=== PATIENT | male | born 1980 ===

== ENCOUNTER 2021-04-12 13:13 | Emergency (ER) | payer BC ==
--- NOTE | 2021-04-12 18:04 | Emergency Department Report ---
<NEYMAR NOBLE - Last Filed: 04/13/21 00:25> ED General Adult HPI - General Chief complaint: Sore Throat Stated complaint: FEVER/BODY PAIN Time Seen by Provider: 04/12/21 17:50 Source: patient Mode of arrival: Ambulatory Limitations: No Limitations - History of Present Illness Initial comments: 40-year-old male patient presents to the emergency department with complaints of subjective fever, sore throat, difficulty swallowing, hoarseness, and body aches starting yesterday. No known sick contacts. No current steroid or antibiotic use. No recent travel. Pain in his throat is worse with swallowing. No history of similar symptoms. Denies cough, wheezing, sneezing, ear pain, vomiting, diarrhea. Denies all other complaints at this time. - Related Data Allergies Allergy/AdvReac Type Severity Reaction Status Date / Time No Known Allergies Allergy Verified 04/13/21 00:47 ED Review of Systems Other: GENERAL: Positive for subjective fever. ENT: Positive for sore throat, hoarseness, and dysphagia. CARDIOVASCULAR: Negative for chest pain, palpitations, lower extremity swelling. PULMONARY: Negative for cough, dyspnea, wheezing, orthopnea, cyanosis. GASTROINTESTINAL: Negative for abdominal pain, nausea, vomiting, diarrhea, constipation. MUSCULOSKELETAL: Positive for myalgias. NEUROLOGICAL: Negative for headache, seizure, syncope, paresthesias, weakness. INTEGUMENTARY: Negative for erythema, rash, diaphoresis, laceration, ecchymosis. HEMATOLOGICAL: Negative for hemoptysis, hematemesis, hematochezia, hematuria. PSYCHIATRIC: Negative for hallucinations, suicidal ideation, homicidal ideation, anxiety, depression. ED Past Medical Hx - Past Medical History Hx Hypertension: Yes - Surgical History Past Surgical History?: No ED Physical Exam - General Limitations: No Limitations - Other Other exam information: General: Awake and alert. No acute distress. Head: Atraumatic, normocephalic. Eyes: EOMI. Pupils are equal and round. Normal sclera and conjunctiva. ENT: Oral mucosa is moist. Pharyngeal erythema with bilateral tonsillar swelling, no exudate. Uvula is midline and nonedematous. Hoarseness noted. No trismus. Submental and submandibular spaces are soft, no crepitus, no overlying erythema. Neck: Supple. Diffuse tender bilateral cervical lymphadenopathy. Pulmonary: No respiratory distress. Clear to auscultation bilaterally. Cardiac: Regular rate and rhythm. Pulses are palpable and equal bilaterally. No lower extremity cyanosis or edema. Skin: Warm and dry. No rashes. Abdomen: Soft, non-tender, non-protuberant. No guarding, rigidity, or rebound. Bowel sounds are normal. No organomegaly or masses noted. Back: Normal alignment. No CVA tenderness. Extremities: Symmetrical. Full range of motion intact. Neurological: Alert and oriented, appropriately interactive, no focal deficits. Psych: Cooperative. Appropriate mood and affect. Speech is evenly metered. Thoughts are logically construed. 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 TECHNIQUE: Contiguous thin cut axial images obtained through the neck following IV contrast. Sagittal and coronal reconstructions performed by the technologist. All CT scans at this location are performed using CT dose reduction for ALARA by means of automated exposure control. COMPARISON: None available. FINDINGS: There is a well-circumscribed, rim-enhancing fluid collection in the submucosal soft tissues of the hypopharynx on the right, measuring approximately 3.1 cm transversely by 3.3 cm craniocaudally by 2.1 cm AP. Small portion of fluid collection extends inferiorly through the thyrohyoid ligament into the supraglottic larynx region on the right. The superior margin of the lesion lies inferior to the hyoid bone. There is focal mass effect with leftward displacement of the airway. Infected branchial cleft cyst might be a consideration. Infected laryngocele might be considered as well. Necrotic or infected node could be considered, although I feel this is less likely MUCOSAL SPACE: [place] and lingual tonsillar tissue is mildly prominent, as is the patient's adenoidal tissue, which may be reactive. External laryngocele noted on the left. Otherwise, the nasopharynx, oropharynx and vallecula, oral cavity and floor of mouth, hypopharynx, and larynx are grossly normal. LYMPH NODES: Reactive level 2 lymph nodes noted. No evidence of suppurative node seen. SALIVARY GLANDS: Parotid, submandibular, and visualized sublingual glands are within normal limits. THYROID GLAND: Unremarkable. PARANASAL SINUSES: Mild to moderate mucosal thickening in the ethmoids. Mild mucosal thickening also seen in the mastoids. SPINE: Disc space narrowing is seen at C5-6 with anterior spondylosis seen. There is mild loss of height at C5 and C6, most likely on a chronic degenerative basis. VASCULAR STRUCTURES: Vascular structures are grossly normal in appearance. ADDITIONAL FINDINGS: Surrounding soft tissues are otherwise grossly normal. IMPRESSION: 1. Well-circumscribed, rim-enhancing fluid collection in the right neck as described above in detail, worrisome for infection. Signer Name: Martin Guzman MD, III Signed: 04/12/2021 9:37 PM Workstation Name: [email or web address] [id number] Transcribed By: HR Dictated By: Martin Guzman MD Electronically Authenticated By: Martin Guzman MD Signed Date/Time: 04/12/212136 DD/ 26 TD/TT: - Medical Decision Making Differential diagnosis including but not limited to: strep pharyngitis, viral pharyngitis, peritonsillar abscess, epiglottitis, Kwadwo's angina, mononucleosis, otitis media, allergic rhinitis Patient presents to the emergency department with complaints of rapidly progressing sore throat and voice changes starting less than 24 hours earlier. He is afebrile, vital signs are stable, no hypoxia, no respiratory distress. Cardiac monitoring, continuous pulse oximetry, and peripheral IV placement ordered immediately upon evaluating the patient. Labs are unremarkable. Rapid strep test is negative. CT of the neck shows a well-circumscribed, rim- enhancing fluid collection along the right hypopharynx extending from the supraglottic larynx to the thyrohyoid ligament, with focal mass-effect and leftward displacement of the airway. IV Clindamycin and Decadron ordered. ENT services not available at this facility. Case discussed with Dr. Patricia, attending emergency physician, who personally evaluated the patient and agrees with diagnostic work-up/plan of care. Care of patient transferred to Dr. Patricia pending transfer to outside facility with ENT services available. Please see ED physician documentation for details regarding final disposition. Critical Care Time: Yes Critical care time in (mins) excluding proc time.: 74 Critical Care Time: 74 ED Disposition Clinical Impression: Abscess of neck, Sore throat, Throat pain, Hoarseness, Pharyngeal abscess Disposition: 07 LEFT AGAINST MEDICAL ADVICE Is pt being admited?: No Does the pt Need Aspirin: No Condition: Critical Additional Instructions: Patient to go directly to [place] or [place] or another facility with ENT support. Referrals: CONNOR LUIS MD [Primary Care Provider] - 2-3 Days Forms: Work/School Release Form(ED) <MARC PATRICIA III - Last Filed: 04/13/21 06:19> ED General Adult HPI - General PUI?: Yes ED Review of Systems ROS: Stated complaint: FEVER/BODY PAIN Other details as noted in HPI ED Course Vital Signs 04/12/21 04/12/21 04/13/21 13:46 22:26 00:01 Temperature 99.1 F Pulse Rate 88 81 74 Respiratory 20 12 15 Rate Blood Pressure 137/99 138/83 O2 Sat by Pulse 98 100 98 Oximetry 04/13/21 04/13/21 04/13/21 00:15 00:31 00:45 Temperature Pulse Rate 77 72 73 Respiratory 12 12 12 Rate Blood Pressure 138/83 140/80 140/80 O2 Sat by Pulse 98 98 97 Oximetry 04/13/21 04/13/21 04/13/21 01:01 01:15 01:31 Temperature Pulse Rate 73 80 75 Respiratory 12 11 L 12 Rate Blood Pressure 141/81 141/81 139/93 O2 Sat by Pulse 96 95 97 Oximetry 04/13/21 04/13/21 04/13/21 01:45 02:01 02:04 Temperature 98.6 F Pulse Rate 85 78 Respiratory 19 15 Rate Blood Pressure 139/93 139/93 O2 Sat by Pulse 96 96 99 Oximetry 04/13/21 04/13/21 04/13/21 02:15 02:31 02:45 Temperature Pulse Rate 63 66 64 Respiratory 11 L 11 L 10 L Rate Blood Pressure 139/93 126/50 126/50 O2 Sat by Pulse 96 96 97 Oximetry 04/13/21 03:01 Temperature Pulse Rate 61 Respiratory 11 L Rate Blood Pressure 133/45 O2 Sat by Pulse 97 Oximetry - Reevaluation(s) Reevaluation #1: I reviewed the findings and management of this patient in real-time and I have personally seen and examined this patient and participated in the decision making for this patient with the midlevel. Patient is a 40-year-old male who presents emergency room for insidious onset of sore throat and hoarseness and voice changes. Patient states he is having severe pain. Patient states the symptoms started 24 hours ago and are severe and worsening. Patient is visiting here from the midlevel however I assumed care at this time. Patient was transferred from the past outside to the acute care center. Patient had a CT scan of the neck with IV contrast and the CT shows a large collection of fluid in the right neck extending to the lower pharynx and laryngeal and supero supraglottal and hyoid bone. The abscess and fluid collection is causing a leftward shift of the airway. Patient requiring ENT consult. I discussed possibility transfer with patient patient agrees with plan of care. I will reach out to some local facilities in order to try to transfer the patient to a facility that has ENT support. Patient will be given Clinda, Solu-Medrol, Zofran and morphine. Patient had labs done. Labs are essentially unremarkable. Patient strep was negative. I examined the patient. Patient's lung sounds are clear to auscultation. Patient CV exam shows a normal S1-S2 and no murmurs. Patient's abdominal exam is negative. Patient has left neck tenderness and cervical lymphadenopathy noted. No stridor noted. 04/12/21 22:15 Reevaluation #2: Patient states he is feeling better. Patient states the pain is better. I informed patient that we're still looking for a facility that has ENT support for him to be transferred to. 04/13/21 00:26 Reevaluation #3: I discussed all results with patient. I discussed transfer with the patient. I informed the patient that the patient will need to be transferred to another hospital that is outside the [facility] since all the hospitals in the within the [facility] are at capacity. Patient states he does not want to be transferred that far away. Patient states he wants to leave the hospital and go to [facility] [place] or [place] by private vehicle. I discussed this with patient. I discussed the risk with patient. Patient voiced understanding of the risk of leaving the hospital best medical advice. Patient signed AMA form. Patient given a copy of the CT. Even though the patient is leaving the hospital as a medical vice, a formal discharge will be given to the patient. 04/13/21 03:26 - Consultations Consultation #1: I discussed the case with the hospitalist service and they recommend transfer. 04/12/21 10:22 I discussed the case with the hospitalist and the hospitalist states that we can admit this patient to the hospitalist do not have ENT support. 04/13/21 02:12 Consultation #2: I discussed with multiple transfer centers in the [facility] as well as in [facility] and [facility] and all hospitals with available ENT are on diversion and have no available beds. 04/12/21 10:30 - 04/13/21 01:[address] Bland, ENT at [facility] and Dr. Bland recommends admission here to the medicine team and attempt to transfer tomorrow because [facility] has no available beds as well. 04/13/21 01:52 Consultation #3: I discussed the case with the transfer center at [facility] in [facility]. [facility] has available beds and will page the ENT on-call. 04/13/21 03:25 ED Medical Decision Making - Lab Data Result diagrams: 04/12/21 18:13 04/12/21 18:13 - Medical Decision Making Patient is a 40-year-old male that presents emergency room for sore throat and hoarseness. Patient had insidious onset of symptoms. Patient symptoms are worsening past 24 hours. Patient was originally evaluated by midlevel and I assumed care later in the course. Patient had a CT scan which shows pharyngeal abscesses and lymphadenopathy within the right neck. Patient's right neck abscess is causing leftward shift of the airway. Patient's labs are unremarkable. Patient vital signs stable. Patient will require transfer to a facility with ENT support. This facility does not have. I discussed with multiple facilities may transfer option however multiple facilities are on diversion. I then discussed with [facility] in [place] and [facility] has beds and ENT support. However when I discussed this with the patient the patient states he does not want to be transferred so far away states that he will go by private vehicle to another facility. I discussed the risk of this with the patient and the patient voiced understanding of the risk. Patient is of sound mind and body. Patient signed AMA form. Patient given copy of the CT results. Patient left hospital past medical advice. Critical care time documented due to the multiple reassessments, prolonged time at the bedside, interpretation of diagnostics and labs multiple discussion with receiving hospitals.. Critical Care Time: Yes Critical care time in (mins) excluding proc time.: 74 Critical care attestation.: If time is entered above; I have spent that time in minutes in the direct care of this critically ill patient, excluding procedure time. ED Disposition Is pt being admited?: No Does the pt Need Aspirin: No Time of Disposition: 03:28
[2021-04-12 18:24] LABS: Basophils # (Auto) 0.1 K/mm3 (0.0-0.1); Basophils % (Auto) 0.6 % (0.0-1.8); Eosinophils % (Auto) 0.4 % (0.0-4.3); Hematocrit 45.7 % (35.5-45.6); Lymphocytes % (Auto) 21.9 % (13.4-35.0); Mean Corpuscular HGB Conc 35 % (32-34); Mean Corpuscular Volume 98 fl (84-94); Monocytes # (Auto) 1.1 K/mm3 (0.0-0.8); Monocytes % (Auto) 12.2 % (0.0-7.3); Platelet Count 255 K/mm3 (140-440); Red Blood Count 4.67 M/mm3 (3.65-5.03); Red Cell Distribution Width 13.1 % (13.2-15.2)
[2021-04-12 18:49] LABS: Alanine Aminotransferase 19 units/L (7-56); Albumin 4.2 g/dL (3.9-5); BUN/Creatinine Ratio 12; Blood Urea Nitrogen 12 mg/dL (9-20); Calcium 9.1 mg/dL (8.4-10.2); Hemolysis Index 4
--- NOTE | 2021-04-12 21:41 | Cat Scan Report ---
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 TECHNIQUE: Contiguous thin cut axial images obtained through the neck following IV contrast. Sagittal and burnham l reconstructions performed by the technologist. All CT scans at this location are performed using CT dose reduction for ALARA by means of automated exposure control. COMPARISON: None available. FINDINGS: There is a well-circumscribed, rim-enhancing fluid collection in the submucosal soft tissue s of the hypopharynx on the right, measuring approximately 3.1 cm transversely by 3.3 cm craniocaudal ly by 2.1 cm AP. Small portion of fluid collection extends inferiorly through the thyrohyoid ligament into the supraglottic larynx region on the right. The superior margin of the lesion lies inferior to the hyoid bone. There is focal mass effect with leftward displacement of the airway. Infected branch ial cleft cyst might be a consideration. Infected laryngocele might be considered as well. Necrotic o r infected node could be considered, although I feel this is less likely MUCOSAL SPACE: [place] and lingual tonsillar tissue is mildly prominent, as is the patient's adenoid al tissue, which may be reactive. External laryngocele noted on the left. Otherwise, the nasopharynx, oropharynx and vallecula, oral cavity and floor of mouth, hypopharynx, an d larynx are grossly normal. LYMPH NODES: Reactive level 2 lymph nodes noted. No evidence of suppurative node seen. SALIVARY GLANDS: Parotid, submandibular, and visualized sublingual glands are within normal limits. THYROID GLAND: Unremarkable. PARANASAL SINUSES: Mild to moderate mucosal thickening in the ethmoids. Mild mucosal thickening also seen in the mastoids. SPINE: Disc space narrowing is seen at C5-6 with anterior spondylosis seen. There is mild loss of hei ght at C5 and C6, most likely on a chronic degenerative basis. VASCULAR STRUCTURES: Vascular structures are grossly normal in appearance. ADDITIONAL FINDINGS: Surrounding soft tissues are otherwise grossly normal. IMPRESSION: 1. Well-circumscribed, rim-enhancing fluid collection in the right neck as described above in detail, worrisome for infection. Signer Name: Martin Guzman MD, III Signed: 04/12/2021 9:37 PM Workstation Name: [email or web address]
[2021-04-12] MEDS ORDERED: methylPREDNISolone Sod Succinate 125 MG/2 ML INJ IV ONE (22:08)
[2021-04-12] MEDS ORDERED: MORPHINE 4 MG/1 ML INJ IV ONE (22:08)
[2021-04-12] MEDS ORDERED: ONDANSETRON 4 MG/2 ML INJ IV ONE (22:08)
[2021-04-12] MEDS ORDERED: dexAMETHasone 20 MG/5 ML VIAL IV ONE (22:08)
[2021-04-12] MEDS ORDERED: CLINDAMYCIN 600 MG/50 mL 600 MG/50 ML BAG IV ONE (22:40)
[2021-04-13] MEDS ORDERED: AMPICILLIN/SULBACTA 3GM/100ML 3 GM/100 ML BAG IV ONE (00:46)
[2021-04-13 03:20] VITALS: BP 133/45
== END 2021-04-13 04:09 | disposition left against medical advice (07) ==
LOC: ED 13:13
DX: L02.11 Cutaneous abscess of neck (principal); J02.9 Acute pharyngitis, unspecified; R49.0 Dysphonia; I10 Essential (primary) hypertension
CPT/HCPCS: 36415; 70491; 80053; 85025; 87116; 87430; 96365; 96367; 96375; 99284; J0295; J2270; J2405; J2930; Q9967